=== PATIENT | female | born 1975 | race Caucasian/White ===

== ENCOUNTER 2016-11-15 15:48 | Emergency (ER) | payer OTHER ==
[~2016-11-15] VITALS: Ht 160 cm; Wt 117.9 kg
[~2016-11-15 15:48] MED LIST: BONTRIL SLOW-R105 MG PO; CEPHALEXIN500 MG PO; DEMADEX10 MG PO; LUTERA1 EACH PO; MELOXICAM15 MG PO; NORCO 5-325 TA1 EACH PO; OXYCODON-ACETA1 EAC2 PO; TRIAMTERENE-HC1 EAC3 PO; VITAMIN D400 UNIT PO; VITAMIN D5000 UNIT; WELLBUTRIN XL150 MG PO; XANAX1 MG PO
[2016-11-15] MEDS ORDERED: ALPRAZOLAM0.25 MG PO (15:58)
[2016-11-15] MEDS ORDERED: METFORMIN HCL500 M1 PO (15:59)
--- NOTE | 2016-11-16 20:54 | EKG ---
[facility] [address] [facility] [place] [address] Signed Sinus tachycardia Nonspecific T wave abnormality Abnormal ECG When compared with ECG of 22-JUN-2016 19:38, Nonspecific T wave abnormality now evident in Lateral leads Confirmed by GEMA RILEY MD ([id number]) on 11/16/2016 8:54:10 PM Electronically Signed By: GEMA RILEY MD 11/16/16 2054 PATIENT NAME: HIEN HENDRICKSON Electrocardiogram DATE OF : 77 PHYSICIAN: GEMA RILEY MD REPORT #: [id number] REPORT IS CONFIDENTIAL AND NOT TO BE RELEASED WITHOUT AUTHORIZATION
== END 2016-11-15 19:20 | disposition home or self-care (01) ==
LOC: ED 15:48
DX: F41.0 Panic disorder [episodic paroxysmal anxiety] (principal); E78.00 Pure hypercholesterolemia, unspecified; F32.9 Major depressive disorder, single episode, unspecified; Z87.891 Personal history of nicotine dependence; Z90.49 Acquired absence of other specified parts of digestive tract; Z90.89 Acquired absence of other organs; Z79.899 Other long term (current) drug therapy; Z79.84 Long term (current) use of oral hypoglycemic drugs
CPT/HCPCS: 36415; 84484; 93005; 93010; 96374; 99284; J2060

== ENCOUNTER 2016-11-26 02:39 | Emergency (ER) | payer OTHER ==
[~2016-11-26] VITALS: Ht 160 cm; Wt 117.9 kg
[~2016-11-26 02:39] MED LIST changes: +ALPRAZOLAM0.25 MG PO; +METFORMIN HCL500 M1 PO
[2016-11-26] MEDS ORDERED: ZOFRAN ODT4 MG PO (04:22)
[2016-11-26] MEDS ORDERED: NORCO 5-325 TA1 EACH PO (04:22)
== END 2016-11-26 04:55 | disposition home or self-care (01) ==
LOC: ED 02:39
DX: N23 Unspecified renal colic (principal); E78.00 Pure hypercholesterolemia, unspecified; F32.9 Major depressive disorder, single episode, unspecified; Z87.891 Personal history of nicotine dependence; Z90.49 Acquired absence of other specified parts of digestive tract; Z79.899 Other long term (current) drug therapy; Z79.84 Long term (current) use of oral hypoglycemic drugs
CPT/HCPCS: 74176; 80053; 81001; 83690; 84703; 85025; 96361; 96374; 96375; 99284; J1885; J2405; J7030

== ENCOUNTER → 2017-02-16 | Emergency (ER) | payer OTHER ==
[~2017-02-16] VITALS: Ht 160 cm; Wt 117.9 kg
[~2017-02-16] MED LIST changes: +BUPROPION XL300 MG PO; +ZOFRAN ODT4 MG PO
--- NOTE | 2017-02-16 23:17 | EKG ---
[facility] [address] [facility] [place] [address] Signed Normal sinus rhythm Possible Inferior infarct , age undetermined Abnormal ECG When compared with ECG of 15-NOV-2016 16:00, No significant change was found Confirmed by GEMA RILEY MD ([id number]) on 02/16/2017 11:16:53 PM Electronically Signed By: GEMA RILEY MD 02/16/17 2317 PATIENT NAME: HIEN HENDRICKSON Electrocardiogram DATE OF : 77 PHYSICIAN: GEMA RILEY MD REPORT #: [id number] REPORT IS CONFIDENTIAL AND NOT TO BE RELEASED WITHOUT AUTHORIZATION
== END ==
LOC: ED 00:46
DX: F41.0 Panic disorder [episodic paroxysmal anxiety] (principal); E78.00 Pure hypercholesterolemia, unspecified; F41.9 Anxiety disorder, unspecified; Z87.891 Personal history of nicotine dependence; Z90.49 Acquired absence of other specified parts of digestive tract; Z79.84 Long term (current) use of oral hypoglycemic drugs; Z79.899 Other long term (current) drug therapy
CPT/HCPCS: 80053; 84484; 85025; 93005; 93010; 99284

== ENCOUNTER 2017-03-16 12:21 | Emergency (ER) | payer OTHER ==
[~2017-03-16] VITALS: Ht 160 cm; Wt 108.9 kg
[~2017-03-16 12:21] MED LIST changes: -BUPROPION XL300 MG PO
[2017-03-16] MEDS ORDERED: BUPROPION XL300 MG PO (12:39)
--- NOTE | 2017-03-17 11:56 | EKG ---
[facility] [address] [facility] [place] [address] Signed Normal sinus rhythm Normal ECG When compared with ECG of 16-FEB-2017 00:52, Nonspecific T wave abnormality, improved in Anterolateral leads Confirmed by GEMA RILEY MD ([id number]) on 03/17/2017 11:56:40 AM Electronically Signed By: GEMA RILEY MD 03/17/17 1156 PATIENT NAME: HIEN HENDRICKSON Electrocardiogram DATE OF : 77 PHYSICIAN: GEMA RILEY MD REPORT #: [id number] REPORT IS CONFIDENTIAL AND NOT TO BE RELEASED WITHOUT AUTHORIZATION
== END 2017-03-16 15:16 | disposition home or self-care (01) ==
LOC: ED 12:21
DX: F41.0 Panic disorder [episodic paroxysmal anxiety] (principal); E78.00 Pure hypercholesterolemia, unspecified; F32.9 Major depressive disorder, single episode, unspecified; Z90.49 Acquired absence of other specified parts of digestive tract; Z79.899 Other long term (current) drug therapy; Z79.84 Long term (current) use of oral hypoglycemic drugs
CPT/HCPCS: 93005; 93010; 99283

== ENCOUNTER 2019-01-10 08:52 | Emergency (ER) | payer OTHER ==
[~2019-01-10] VITALS: Ht 160 cm; Wt 108.9 kg
[~2019-01-10 08:52] MED LIST changes: +ALPRAZOLAM ER1 MG PO; +BUPROPION XL300 MG PO; -DEMADEX10 MG PO; +DEMADEX20 MG PO; +KEFLEX500 MG PO; +OXYBUTYNIN CHLO10 MG PO; +PYRIDIUM200 MG PO
--- OUTSIDE RECORDS SUMMARY | 2019-01-10 08:54 | XMS ---
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 Care History Medical/Surgical 10/26/2017 [facility] - Patient is currently established with [facility]. If patient is seen in the ED during business hours. Please contact CHWs at [facility]. Care Recommendation: This patient has had 5 or more Emergency Department visits in the last 12 months.\T\nbsp; Patient requires education on the scope and purpose of the ED as an acute care provider not a Primary Care Provider and should not be utilized for chronic conditions.\T\nbsp; These are guidelines and the provider should exercise clinical judgment when providing care. E.D. VISIT COUNT (12 MO.) 1 [facility]. 2 [facility] TOTAL 3 NOTE: Visits indicate total known visits. ED/UCC VISIT TRACKING (12 MO.) 01/10/2019 08:53 [facility] TYPE: Emergency COMPLAINT: - SEIZURES 01/08/2019 14:15 [facility] DIAGNOSES: - Pleurodynia - Abdominal Pain - right abd pain 11/04/2018 00:[address] [facility] [place] TYPE: Emergency COMPLAINT: - CHEST PAIN, RIGHT ARM PAIN NON INJURY DIAGNOSES: - Anxiety disorder, unspecified - Chest pain, unspecified - Precordial pain - Major depressive disorder, single episode, unspecified - Nicotine dependence, unspecified, uncomplicated - Other correction (current) drug therapy INPATIENT VISIT TRACKING (12 MO.) No inpatient visits to display in this time frame [email or web address]
[2019-01-10] MEDS ORDERED: BUSPIRONE HCL10 MG PO (09:05)
[2019-01-10] MEDS ORDERED: BUPROPION XL150 MG PO (09:06)
[2019-01-10] MEDS ORDERED: KEPPRA500 MG PO (11:26)
== END 2019-01-10 12:15 | disposition home or self-care (01) ==
LOC: ED 08:52
DX: R56.9 Unspecified convulsions (principal); F41.9 Anxiety disorder, unspecified; F32.9 Major depressive disorder, single episode, unspecified; F17.200 Nicotine dependence, unspecified, uncomplicated; Z79.899 Other long term (current) drug therapy; Z79.84 Long term (current) use of oral hypoglycemic drugs
CPT/HCPCS: 70450; 71046; 80053; 85025; 96361; 96374; 99285-25; J2060; J7040

== ENCOUNTER 2019-02-17 22:27 | Emergency (ER) | payer OTHER ==
[~2019-02-17] VITALS: Ht 160 cm; Wt 98.9 kg
[~2019-02-17 22:27] MED LIST changes: +BUPROPION XL150 MG PO; +BUSPIRONE HCL10 MG PO; +KEPPRA500 MG PO
--- OUTSIDE RECORDS SUMMARY | 2019-02-17 22:30 | XMS ---
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 Care History Medical/Surgical 01/13/2019 [facility] - PATIENT HAS NEUROLOGIST DR WILKINSON IN [place], [place]. 10/26/2017 [facility] - Patient is currently established with [facility]. If patient is seen in the ED during business hours. Please contact CHWs at [facility]. Care Recommendation: This patient has had 5 [...] care. E.D. VISIT COUNT ([address] [facility] 3 [facility] TOTAL 4 NOTE: Visits indicate total known visits. 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 01/08/2019 14:15 [facility] [place] Abeba Maki TYPE: Emergency DIAGNOSES: - Pleurodynia - Abdominal Pain - right abd pain 11/04/2018 00:48 [facility] [place] TYPE: Emergency COMPLAINT: - CHEST PAIN, RIGHT ARM PAIN NON INJURY DIAGNOSES: - Anxiety disorder, unspecified - Chest pain, unspecified - Precordial pain - Major depressive disorder, single episode, unspecified - Nicotine dependence, unspecified, uncomplicated - Other fci (current) drug therapy INPATIENT VISIT TRACKING (12 MO.) No inpatient visits to display in this time frame [email or web address]
[2019-02-17] MEDS ORDERED: MYRBETRIQ25 MG PO (22:51)
== END 2019-02-18 02:40 | disposition home or self-care (01) ==
LOC: ED 22:27
DX: R07.89 Other chest pain (principal); F17.200 Nicotine dependence, unspecified, uncomplicated; Z79.899 Other long term (current) drug therapy; F41.9 Anxiety disorder, unspecified
CPT/HCPCS: 71045; 74176; 80053; 80176; 81001; 83690; 84703; 85025; 96374; 96375; 99284-25; G0480; J1885; J2405